=== PATIENT | male | born 1955 | race Caucasian/White ===

== ENCOUNTER 2021-03-07 16:14 | Inpatient (IN) | payer MEDICAID ==
[~2021-03-07] VITALS: Ht 172.7 cm; Wt 79.8 kg
[2021-03-07 17:45] LABS: BASOPHILS % 1.3 % (0.0-2.0); EOSINOPHILS % 1.3 % (0.0-5.0); HEMOGLOBIN. 12.7 g/dL (14.0-18.0); LYMPHOCYTES % 15.7 % (20.0-50.0); MEAN CORPUSCULAR HEMOGLOBIN 25.9 pg (28.0-32.0); MEAN CORPUSCULAR VOLUME 79.7 fL (80.0-94.0); MEAN PLATELET VOLUME 8.1 fl (7.4-10.4); MONOCYTES % 12.1 % (2.0-8.0); NEUTROPHILS % 69.6 % (40.0-76.0); PLATELET 215 x1000/uL (130-400); RED CELL DISTRIBUTION WIDTH 18.6 % (11.6-14.6)
[2021-03-07 17:54] LABS: CHLORIDE 102 mEq/L (98-107)
[2021-03-07 17:58] LABS: ETHANOL BLOOD 181 mg/dL
[2021-03-07 18:06] LABS: CLARITY URINE CLEAR (CLEAR); COLOR URINE YELLOW (YELLOW); KETONES URINE NEGATIVE (NEGATIVE); LEUKOCYTE ESTERASE URINE NEGATIVE (NEGATIVE); NITRITE URINE NEGATIVE (NEGATIVE); OCCULT BLOOD URINE NEGATIVE (NEGATIVE); PROTEIN URINE NEGATIVE (NEGATIVE); SPECIFIC GRAVITY URINE 1.004 (1.005-1.030); UROBILINOGEN URINE 0.2 E.U./dL (0.2-1.0)
[2021-03-07 18:28] LABS: *AMPHETAMINES SCREEN URINE NEGATIVE (NEGATIVE); *BENZODIAZEPINES SCREEN URINE NEGATIVE (NEGATIVE); CANNABINOID URINE SCREEN PRESUMTIVE POSITIVE (NEGATIVE); METHADONE URINE SCREEN NEGATIVE (NEGATIVE)
[2021-03-07 18:29] LABS: *BARBITURATES SCREEN URINE NEGATIVE (NEGATIVE); *COCAINE SCREEN URINE NEGATIVE (NEGATIVE); OPIATES URINE SCREEN NEGATIVE (NEGATIVE); PHENCYCLIDINE URINE SCREEN NEGATIVE (NEGATIVE)
[2021-03-07 19:06] LABS: PROTHROMBIN TIME 10.9 sec (9.6-11.0)
[2021-03-07] MEDS ORDERED: MORPHINE SULFATE 4 MG/ML CPJ (NOT FOR IM USE) IV STA (19:06)
[2021-03-07] MEDS ORDERED: ONDANSETRON HCL 4MG/2ML INJ IV STA (19:06)
[2021-03-07] MEDS ORDERED: NICARDIPINE 100 MG in SODIUM CHLORIDE 0.9% 60 ML IV PRN (19:30)
[2021-03-07] MEDS ORDERED: MORPHINE SULFATE 2 MG/ML CPJ (NOT FOR IM USE) IV PRN (19:30)
[2021-03-07] MEDS ORDERED: NALOXONE HCL 0.4MG/ML VIAL IV PRN (19:30)
[2021-03-07] MEDS: DEXT 5%/LACTATED RINGERS 1,000 ML IV SCH (20:08)
[2021-03-07] MEDS ORDERED: LEVETIRACETAM 500MG PREMIX 100 ML IV SCH (21:00)
[2021-03-07 23:09] VITALS: BP 132/77
[2021-03-07 23:10] VITALS: BP 125/74
[2021-03-07 23:15] VITALS: BP 116/73
[2021-03-07 23:30] VITALS: BP 125/74
[2021-03-07 23:45] VITALS: BP 116/71
[2021-03-08] VITALS (96 sets, daily range): BP systolic 86–167; BP diastolic 28–146
[2021-03-08] MEDS: NICARDIPINE 100 MG in SODIUM CHLORIDE 0.9% 60 ML IV PRN ×2 (00:37→08:00)
[2021-03-08] MEDS ORDERED: MANNITOL 20% (20GM/100ML) BAG 500ML PREMIX IV ONE (06:30)
[2021-03-08] MEDS ORDERED: MANNITOL 20% 125 ML IV SCH (06:45)
[2021-03-08] MEDS ORDERED: LIDOCAINE HCL/EPINEPHRINE 1%-EPI 1:100,000 20 ML VIAL ONE (07:10)
[2021-03-08] MEDS ORDERED: THROMBIN (BOVINE) 5000 UNITS/VIAL TOP ONE (07:11)
[2021-03-08] MEDS ORDERED: BACITRACIN 15GM TUBE TOP ONE (07:11)
[2021-03-08] MEDS ORDERED: GENTAMICIN SULF 40MG/ML 2ML VIAL ONE (07:11)
[2021-03-08] MEDS: LEVETIRACETAM 500MG PREMIX 100 ML IV SCH ×2 (08:12→21:09)
[2021-03-08] MEDS: PANTOPRAZOLE SODIUM 40 MG/VIAL IV SCH (09:36)
[2021-03-08] MEDS ORDERED: FENTANYL CITRATE/PF 50MCG/ML 2ML VIAL ONE (10:10)
[2021-03-08] MEDS ORDERED: MIDAZOLAM HCL 2 MG/2 ML VIAL ONE (10:10)
[2021-03-08] MEDS ORDERED: PROPOFOL 200MG/20ML VIAL IV ONE (10:10)
[2021-03-08] MEDS ORDERED: NEOSTIGMINE METHYLSULFATE 1MG/ML 10 ML VIAL ONE (10:10)
[2021-03-08] MEDS ORDERED: ROCURONIUM BROMIDE 10MG/ML VIAL 5ML IV ONE (10:10)
[2021-03-08] MEDS ORDERED: GLYCOPYRROLATE 0.2 MG/ML 2ML VIAL ONE (10:10)
[2021-03-08] MEDS ORDERED: ONDANSETRON HCL 4MG/2ML INJ ONE (10:43)
[2021-03-08] MEDS ORDERED: DEXAMETHASONE 4MG/ML 1ML VIAL ONE (10:43)
[2021-03-08] MEDS: MORPHINE SULFATE 2 MG/ML CPJ (NOT FOR IM USE) IV PRN ×4 (11:46→21:41)
[2021-03-08] MEDS: DEXT 5%/LACTATED RINGERS 1,000 ML IV SCH (12:10)
[2021-03-08] MEDS: ONDANSETRON HCL 4MG/2ML INJ IV PRN (13:47)
[2021-03-08] MEDS ORDERED: CEFAZOLIN SODIUM 1000MG/VIAL IV SCH (14:00)
[2021-03-08] MEDS: CEFAZOLIN 1000MG PREMIX 50 ML IV SCH ×2 (15:04→21:55)
[2021-03-08] MEDS: NICOTINE 14MG PATCH TD SCH (15:05)
[2021-03-08] MEDS ORDERED: MORPHINE SULFATE 2 MG/ML CPJ (NOT FOR IM USE) IV NR (17:30)
[2021-03-08] MEDS ORDERED: FOLIC ACID 1 MG, THIAMINE HCL 100 MG, MVI, ADULT NO.1 10 ML in DEXTROSE 5% WATER 1,000 ML IV SCH ×2 (20:00)
[2021-03-08] MEDS: [UNRECOGNIZED DRUG - REMARK] IV SCH (21:29)
[2021-03-08] MEDS ORDERED: IPRATROPIUM/ALBUTEROL 0.5-3(2.5)MG/3ML NEB HHN PRN (23:45)
[2021-03-09] VITALS (92 sets, daily range): BP systolic 94–164; BP diastolic 43–120
[2021-03-09] MEDS: ONDANSETRON HCL 4MG/2ML INJ IV PRN ×2 (00:36→09:28)
[2021-03-09] MEDS: MORPHINE SULFATE 2 MG/ML CPJ (NOT FOR IM USE) IV PRN ×6 (02:36→23:04)
[2021-03-09] MEDS: CEFAZOLIN 1000MG PREMIX 50 ML IV SCH ×2 (05:38→15:15)
[2021-03-09 05:41] LABS: HEMATOCRIT. 32.1 % (42.0-52.0); HEMOGLOBIN. 10.4 g/dL (14.0-18.0); MEAN CORPUSCULAR HEMOGLOBIN 25.9 pg (28.0-32.0); MEAN CORPUSCULAR VOLUME 79.8 fL (80.0-94.0); MEAN PLATELET VOLUME 8.5 fl (7.4-10.4); PLATELET 181 x1000/uL (130-400); RED BLOOD CELL COUNT 4.03 mill/uL (4.7-6.1); RED CELL DISTRIBUTION WIDTH 18.6 % (11.6-14.6)
[2021-03-09 05:48] LABS: CHLORIDE 101 mEq/L (98-107)
[2021-03-09] MEDS: PANTOPRAZOLE SODIUM 40 MG/VIAL IV SCH (08:37)
[2021-03-09] MEDS: LEVETIRACETAM 500MG PREMIX 100 ML IV SCH ×2 (08:38→20:05)
[2021-03-09] MEDS: DEXT 5%/LACTATED RINGERS 1,000 ML IV SCH ×2 (08:38→21:30)
[2021-03-09] MEDS: NICOTINE 14MG PATCH TD SCH (08:38)
[2021-03-09] MEDS ORDERED: POTASSIUM CHLORIDE INJ 40 MEQ in DEXT 5% WATER 250 ML IV SCH (10:00)
[2021-03-09 10:49] LABS: PLATELET ESTIMATE NORMAL
[2021-03-09] MEDS: [UNRECOGNIZED DRUG - REMARK] IV SCH (20:48)
[2021-03-09] MEDS: NICARDIPINE 100 MG in SODIUM CHLORIDE 0.9% 60 ML IV PRN (23:03)
[2021-03-10] VITALS (88 sets, daily range): BP systolic 67–185; BP diastolic 31–110
[2021-03-10] MEDS: MORPHINE SULFATE 2 MG/ML CPJ (NOT FOR IM USE) IV PRN ×7 (01:54→20:42)
[2021-03-10 05:29] LABS: CHLORIDE 97 mEq/L (98-107); HEMATOCRIT. 34.1 % (42.0-52.0); HEMOGLOBIN. 10.8 g/dL (14.0-18.0); MEAN CORPUSCULAR VOLUME 81.7 fL (80.0-94.0); MEAN PLATELET VOLUME 8.4 fl (7.4-10.4); PLATELET 152 x1000/uL (130-400); RED BLOOD CELL COUNT 4.17 mill/uL (4.7-6.1); RED CELL DISTRIBUTION WIDTH 18.4 % (11.6-14.6)
[2021-03-10] MEDS: PANTOPRAZOLE SODIUM 40 MG/VIAL IV SCH (08:57)
[2021-03-10] MEDS: NICOTINE 14MG PATCH TD SCH (08:58)
[2021-03-10] MEDS: LEVETIRACETAM 500MG PREMIX 100 ML IV SCH ×2 (08:58→21:44)
[2021-03-10 09:22] LABS: NUCLEATED RED BLOOD CELLS 1 /100 WBC
[2021-03-10 09:23] LABS: PLATELET ESTIMATE NORMAL
[2021-03-10] MEDS ORDERED: KCL 20MEQ/100ML PREMIX 100 ML IV SCH (12:00)
[2021-03-10] MEDS: DEXT 5%/LACTATED RINGERS 1,000 ML IV SCH (14:21)
[2021-03-10] MEDS: [UNRECOGNIZED DRUG - REMARK] IV SCH (21:44)
[2021-03-11] VITALS (90 sets, daily range): BP systolic 97–191; BP diastolic 48–117
[2021-03-11 05:32] LABS: HEMATOCRIT. 32.2 % (42.0-52.0); HEMOGLOBIN. 10.4 g/dL (14.0-18.0); MEAN CORPUSCULAR HEMOGLOBIN 26.1 pg (28.0-32.0); MEAN CORPUSCULAR VOLUME 80.7 fL (80.0-94.0); MEAN PLATELET VOLUME 8.7 fl (7.4-10.4); PLATELET 154 x1000/uL (130-400); RED BLOOD CELL COUNT 3.98 mill/uL (4.7-6.1); RED CELL DISTRIBUTION WIDTH 18.4 % (11.6-14.6)
[2021-03-11 05:50] LABS: CHLORIDE 99 mEq/L (98-107)
[2021-03-11] MEDS ORDERED: KCL 20MEQ/100ML PREMIX 100 ML IV SCH (06:30)
[2021-03-11] MEDS: DEXT 5%/LACTATED RINGERS 1,000 ML IV SCH (07:03)
[2021-03-11] MEDS: PANTOPRAZOLE SODIUM 40 MG/VIAL IV SCH (08:11)
[2021-03-11] MEDS: NICOTINE 14MG PATCH TD SCH (08:11)
[2021-03-11] MEDS: LEVETIRACETAM 500MG PREMIX 100 ML IV SCH ×2 (09:41→21:52)
[2021-03-11] MEDS: KCL 20MEQ/100ML PREMIX 100 ML IV SCH ×2 (10:48→13:12)
[2021-03-11] MEDS: MORPHINE SULFATE 2 MG/ML CPJ (NOT FOR IM USE) IV PRN ×2 (11:24→17:45)
[2021-03-11] MEDS: NICARDIPINE 100 MG in SODIUM CHLORIDE 0.9% 60 ML IV PRN (14:02)
[2021-03-11 14:43] LABS: PLATELET ESTIMATE NORMAL
[2021-03-11] MEDS: [UNRECOGNIZED DRUG - REMARK] IV SCH (21:52)
[2021-03-12] VITALS (27 sets, daily range): BP systolic 113–175; BP diastolic 53–87
[2021-03-12] MEDS: DEXT 5%/LACTATED RINGERS 1,000 ML IV SCH ×2 (06:03→16:21)
[2021-03-12] MEDS: POTASSIUM CHLORIDE 20MEQ/PACKET PO SCH (08:42)
[2021-03-12] MEDS: PANTOPRAZOLE SODIUM 40 MG/VIAL IV SCH (08:42)
[2021-03-12] MEDS: NICOTINE 14MG PATCH TD SCH (08:42)
[2021-03-12] MEDS: LEVETIRACETAM 500MG PREMIX 100 ML IV SCH ×2 (08:42→20:20)
[2021-03-12] MEDS ORDERED: CLONIDINE 0.1MG TABLET PO PRN (11:45)
[2021-03-12] MEDS: MORPHINE SULFATE 2 MG/ML CPJ (NOT FOR IM USE) IV PRN (12:54)
[2021-03-12 13:34] LABS: HEMATOCRIT. 35.6 % (42.0-52.0); HEMOGLOBIN. 11.4 g/dL (14.0-18.0); MEAN PLATELET VOLUME 8.6 fl (7.4-10.4); PLATELET 167 x1000/uL (130-400); RED BLOOD CELL COUNT 4.39 mill/uL (4.7-6.1); RED CELL DISTRIBUTION WIDTH 18.5 % (11.6-14.6)
[2021-03-12 13:45] LABS: CHLORIDE 103 mEq/L (98-107)
[2021-03-12] MEDS ORDERED: AMLODIPINE 5MG TABLET PO NR (17:15)
[2021-03-12 18:38] LABS: PLATELET ESTIMATE NORMAL
[2021-03-12] MEDS: LORAZEPAM 2MG/ML CPJ IV PRN (18:47)
[2021-03-12] MEDS: ONDANSETRON HCL 4MG/2ML INJ IV PRN (23:01)
[2021-03-13] VITALS (12 sets, daily range): BP systolic 120–149; BP diastolic 74–101
[2021-03-13] MEDS: LORAZEPAM 2MG/ML CPJ IV PRN (04:25)
[2021-03-13 06:17] LABS: HEMATOCRIT. 34.7 % (42.0-52.0); HEMOGLOBIN. 11.5 g/dL (14.0-18.0); MEAN CORPUSCULAR HEMOGLOBIN 26.6 pg (28.0-32.0); MEAN CORPUSCULAR VOLUME 80.1 fL (80.0-94.0); MEAN PLATELET VOLUME 8.8 fl (7.4-10.4); PLATELET 182 x1000/uL (130-400); RED BLOOD CELL COUNT 4.34 mill/uL (4.7-6.1); RED CELL DISTRIBUTION WIDTH 18.4 % (11.6-14.6)
[2021-03-13 06:26] LABS: CHLORIDE 101 mEq/L (98-107)
[2021-03-13] MEDS: DEXT 5%/LACTATED RINGERS 1,000 ML IV SCH (08:50)
[2021-03-13] MEDS: PANTOPRAZOLE SODIUM 40 MG/VIAL IV SCH ×2 (09:00→09:20)
[2021-03-13] MEDS: POTASSIUM CHLORIDE 20MEQ/PACKET PO SCH (09:20)
[2021-03-13] MEDS: AMLODIPINE 5MG TABLET PO SCH (09:20)
[2021-03-13] MEDS: NICOTINE 14MG PATCH TD SCH (09:21)
[2021-03-13] MEDS: LEVETIRACETAM 500MG PREMIX 100 ML IV SCH ×2 (09:21→21:04)
[2021-03-13] MEDS ORDERED: LORAZEPAM 1MG TABLET PO PRN (12:15)
[2021-03-13] MEDS ORDERED: NALOXONE HCL 0.4MG/ML VIAL IV PRN (12:30)
[2021-03-13] MEDS: HYDROCODONE/ACETAMINOPHEN 5/325MG TABLET PO PRN ×2 (12:39→21:31)
[2021-03-13 17:06] LABS: PLATELET ESTIMATE NORMAL
[2021-03-13] MEDS ORDERED: POTASSIUM CHLORIDE INJ 40 MEQ in DEXT 5% WATER 250 ML IV NR (20:30)
[2021-03-14] VITALS (12 sets, daily range): BP systolic 117–147; BP diastolic 66–96
[2021-03-14] MEDS: DEXT 5%/LACTATED RINGERS 1,000 ML IV SCH ×2 (00:57→18:02)
[2021-03-14 06:14] LABS: HEMATOCRIT. 34.6 % (42.0-52.0); HEMOGLOBIN. 11.3 g/dL (14.0-18.0); MEAN CORPUSCULAR HEMOGLOBIN 26.1 pg (28.0-32.0); MEAN CORPUSCULAR VOLUME 79.7 fL (80.0-94.0); MEAN PLATELET VOLUME 8.2 fl (7.4-10.4); PLATELET 182 x1000/uL (130-400); RED BLOOD CELL COUNT 4.34 mill/uL (4.7-6.1); RED CELL DISTRIBUTION WIDTH 18.1 % (11.6-14.6)
[2021-03-14 06:22] LABS: CHLORIDE 102 mEq/L (98-107)
[2021-03-14] MEDS: NICOTINE 14MG PATCH TD SCH (08:00)
[2021-03-14] MEDS: AMLODIPINE 5MG TABLET PO SCH (08:00)
[2021-03-14] MEDS: PANTOPRAZOLE SODIUM 40 MG/VIAL IV SCH (08:00)
[2021-03-14] MEDS: POTASSIUM CHLORIDE 20MEQ/PACKET PO SCH (08:00)
[2021-03-14] MEDS: LEVETIRACETAM 500MG PREMIX 100 ML IV SCH ×2 (08:02→20:00)
[2021-03-14] MEDS: HYDROCODONE/ACETAMINOPHEN 5/325MG TABLET PO PRN (09:34)
[2021-03-14] MEDS: LORAZEPAM 2MG/ML CPJ IV PRN (15:17)
[2021-03-14 17:08] LABS: PLATELET ESTIMATE NORMAL
[2021-03-14] MEDS: KCL 20MEQ/100ML PREMIX 100 ML IV SCH (22:10)
[2021-03-15] VITALS (10 sets, daily range): BP systolic 114–142; BP diastolic 58–89
[2021-03-15] MEDS: KCL 20MEQ/100ML PREMIX 100 ML IV SCH (00:11)
[2021-03-15] MEDS: ONDANSETRON HCL 4MG/2ML INJ IV PRN (04:46)
[2021-03-15 06:44] LABS: HEMOGLOBIN. 11.7 g/dL (14.0-18.0); MEAN CORPUSCULAR VOLUME 80.2 fL (80.0-94.0); MEAN PLATELET VOLUME 8.3 fl (7.4-10.4); PLATELET 191 x1000/uL (130-400); RED BLOOD CELL COUNT 4.49 mill/uL (4.7-6.1)
[2021-03-15 06:46] LABS: CHLORIDE 104 mEq/L (98-107)
[2021-03-15] MEDS: AMLODIPINE 5MG TABLET PO SCH (08:26)
[2021-03-15] MEDS: PANTOPRAZOLE SODIUM 40 MG/VIAL IV SCH (08:26)
[2021-03-15] MEDS: NICOTINE 14MG PATCH TD SCH (08:26)
[2021-03-15] MEDS: POTASSIUM CHLORIDE 20MEQ/PACKET PO SCH (08:26)
[2021-03-15] MEDS: LEVETIRACETAM 500MG PREMIX 100 ML IV SCH ×2 (08:27→22:08)
[2021-03-15] MEDS: DEXT 5%/LACTATED RINGERS 1,000 ML IV SCH (17:53)
[2021-03-16] VITALS (13 sets, daily range): BP systolic 121–150; BP diastolic 60–96
[2021-03-16] MEDS: ONDANSETRON HCL 4MG/2ML INJ IV PRN ×2 (01:21→21:42)
[2021-03-16] MEDS: LORAZEPAM 2MG/ML CPJ IV PRN ×3 (02:13→22:01)
[2021-03-16 06:06] LABS: PLATELET ESTIMATE NORMAL
[2021-03-16 06:57] LABS: CHLORIDE 102 mEq/L (98-107)
[2021-03-16 07:02] LABS: HEMATOCRIT. 34.1 % (42.0-52.0); MEAN CORPUSCULAR HEMOGLOBIN 25.8 pg (28.0-32.0); MEAN CORPUSCULAR VOLUME 79.9 fL (80.0-94.0); MEAN PLATELET VOLUME 8.4 fl (7.4-10.4); PLATELET 208 x1000/uL (130-400); RED BLOOD CELL COUNT 4.27 mill/uL (4.7-6.1)
[2021-03-16] MEDS: PANTOPRAZOLE SODIUM 40 MG/VIAL IV SCH (09:16)
[2021-03-16] MEDS: NICOTINE 14MG PATCH TD SCH (09:16)
[2021-03-16] MEDS: POTASSIUM CHLORIDE 20MEQ/PACKET PO SCH (09:16)
[2021-03-16] MEDS: LEVETIRACETAM 500MG PREMIX 100 ML IV SCH ×2 (09:17→21:42)
[2021-03-16] MEDS: AMLODIPINE 5MG TABLET PO SCH (09:18)
[2021-03-16 11:04] LABS: PLATELET ESTIMATE NORMAL
[2021-03-16] MEDS: DEXT 5%/LACTATED RINGERS 1,000 ML IV SCH (12:00)
[2021-03-17] VITALS (11 sets, daily range): BP systolic 121–143; BP diastolic 69–84
[2021-03-17] MEDS: DEXT 5%/LACTATED RINGERS 1,000 ML IV SCH ×3 (06:13→22:47)
[2021-03-17] MEDS: PANTOPRAZOLE SODIUM 40 MG/VIAL IV SCH (09:19)
[2021-03-17] MEDS: AMLODIPINE 5MG TABLET PO SCH (09:19)
[2021-03-17] MEDS: NICOTINE 14MG PATCH TD SCH (09:19)
[2021-03-17] MEDS: POTASSIUM CHLORIDE 20MEQ/PACKET PO SCH (09:19)
[2021-03-17] MEDS: LEVETIRACETAM 500MG PREMIX 100 ML IV SCH ×2 (09:20→21:00)
[2021-03-17] MEDS: LORAZEPAM 2MG/ML CPJ IV PRN (20:32)
[2021-03-17] MEDS: ONDANSETRON HCL 4MG/2ML INJ IV PRN (20:32)
[2021-03-18] VITALS (12 sets, daily range): BP systolic 116–152; BP diastolic 59–95
[2021-03-18] MEDS: LORAZEPAM 2MG/ML CPJ IV PRN ×2 (04:57→20:20)
[2021-03-18] MEDS: HYDROCODONE/ACETAMINOPHEN 5/325MG TABLET PO PRN (04:58)
[2021-03-18] MEDS: LEVETIRACETAM 500MG PREMIX 100 ML IV SCH ×2 (09:02→20:19)
[2021-03-18] MEDS: PANTOPRAZOLE SODIUM 40 MG/VIAL IV SCH (09:02)
[2021-03-18] MEDS: NICOTINE 14MG PATCH TD SCH (09:03)
[2021-03-18] MEDS: POTASSIUM CHLORIDE 20MEQ/PACKET PO SCH (09:03)
[2021-03-18] MEDS: AMLODIPINE 5MG TABLET PO SCH (09:03)
[2021-03-18] MEDS: DEXT 5%/LACTATED RINGERS 1,000 ML IV SCH (20:19)
[2021-03-18] MEDS: ONDANSETRON HCL 4MG/2ML INJ IV PRN (20:20)
[2021-03-19] VITALS (12 sets, daily range): BP systolic 118–144; BP diastolic 62–101
[2021-03-19] MEDS: ONDANSETRON HCL 4MG/2ML INJ IV PRN ×3 (04:42→23:15)
[2021-03-19] MEDS: LORAZEPAM 2MG/ML CPJ IV PRN ×3 (04:42→23:15)
[2021-03-19 07:29] LABS: BASOPHILS % 1.3 % (0.0-2.0); HEMATOCRIT. 38.4 % (42.0-52.0); HEMOGLOBIN. 12.4 g/dL (14.0-18.0); LYMPHOCYTES % 11.3 % (20.0-50.0); MEAN CORPUSCULAR HEMOGLOBIN 26.3 pg (28.0-32.0); MEAN CORPUSCULAR VOLUME 81.8 fL (80.0-94.0); MEAN PLATELET VOLUME 8.6 fl (7.4-10.4); NEUTROPHILS % 72.4 % (40.0-76.0); PLATELET 248 x1000/uL (130-400); RED CELL DISTRIBUTION WIDTH 18.3 % (11.6-14.6)
[2021-03-19 08:02] LABS: CHLORIDE 101 mEq/L (98-107)
[2021-03-19] MEDS: AMLODIPINE 5MG TABLET PO SCH (09:00)
[2021-03-19] MEDS: LEVETIRACETAM 500MG PREMIX 100 ML IV SCH ×2 (10:05→22:05)
[2021-03-19] MEDS: NICOTINE 14MG PATCH TD SCH (10:05)
[2021-03-19] MEDS: PANTOPRAZOLE SODIUM 40 MG/VIAL IV SCH (10:05)
[2021-03-19] MEDS: POTASSIUM CHLORIDE 20MEQ/PACKET PO SCH (10:05)
[2021-03-19] MEDS: LACTULOSE 20G/30ML UDC PO SCH ×2 (14:40→22:04)
[2021-03-19] MEDS: DEXT 5%/LACTATED RINGERS 1,000 ML IV SCH (14:42)
[2021-03-20] VITALS (10 sets, daily range): BP systolic 113–146; BP diastolic 72–86
[2021-03-20] MEDS: LACTULOSE 20G/30ML UDC PO SCH ×3 (05:23→21:33)
[2021-03-20 06:20] LABS: BASOPHILS % 1.1 % (0.0-2.0); EOSINOPHILS % 1.8 % (0.0-5.0); HEMATOCRIT. 38.4 % (42.0-52.0); HEMOGLOBIN. 12.4 g/dL (14.0-18.0); LYMPHOCYTES % 13.2 % (20.0-50.0); MEAN CORPUSCULAR HEMOGLOBIN 26.3 pg (28.0-32.0); MEAN CORPUSCULAR VOLUME 81.6 fL (80.0-94.0); MEAN PLATELET VOLUME 8.4 fl (7.4-10.4); MONOCYTES % 14.5 % (2.0-8.0); NEUTROPHILS % 69.4 % (40.0-76.0); PLATELET 275 x1000/uL (130-400); RED BLOOD CELL COUNT 4.71 mill/uL (4.7-6.1); RED CELL DISTRIBUTION WIDTH 18.2 % (11.6-14.6)
[2021-03-20 06:27] LABS: CHLORIDE 103 mEq/L (98-107)
[2021-03-20 06:53] LABS: CLARITY URINE CLEAR (CLEAR); COLOR URINE YELLOW (YELLOW); KETONES URINE NEGATIVE (NEGATIVE); LEUKOCYTE ESTERASE URINE NEGATIVE (NEGATIVE); NITRITE URINE NEGATIVE (NEGATIVE); OCCULT BLOOD URINE NEGATIVE (NEGATIVE); PH URINE 7.5 (4.5-8.0); PROTEIN URINE NEGATIVE (NEGATIVE)
[2021-03-20] MEDS: LEVETIRACETAM 500MG PREMIX 100 ML IV SCH ×2 (10:31→21:34)
[2021-03-20] MEDS: PANTOPRAZOLE SODIUM 40 MG/VIAL IV SCH (10:32)
[2021-03-20] MEDS: NICOTINE 14MG PATCH TD SCH (10:34)
[2021-03-20] MEDS: AMLODIPINE 5MG TABLET PO SCH (10:37)
[2021-03-20] MEDS: DEXT 5%/LACTATED RINGERS 1,000 ML IV SCH (10:37)
[2021-03-20] MEDS: POTASSIUM CHLORIDE 20MEQ/PACKET PO SCH (10:38)
[2021-03-20] MEDS: LORAZEPAM 2MG/ML CPJ IV PRN (23:56)
[2021-03-21] VITALS (12 sets, daily range): BP systolic 97–135; BP diastolic 59–98
[2021-03-21] MEDS: DEXT 5%/LACTATED RINGERS 1,000 ML IV SCH (03:16)
[2021-03-21] MEDS: LACTULOSE 20G/30ML UDC PO SCH ×3 (04:30→21:33)
[2021-03-21] MEDS: LEVETIRACETAM 500MG PREMIX 100 ML IV SCH (08:36)
[2021-03-21] MEDS: POTASSIUM CHLORIDE 20MEQ/PACKET PO SCH (08:36)
[2021-03-21] MEDS: AMLODIPINE 5MG TABLET PO SCH (08:36)
[2021-03-21] MEDS: PANTOPRAZOLE SODIUM 40 MG/VIAL IV SCH (08:36)
[2021-03-21] MEDS: NICOTINE 14MG PATCH TD SCH (10:01)
[2021-03-21] MEDS: RISPERIDONE 0.5MG TABLET PO SCH (13:00)
[2021-03-21] MEDS ORDERED: LORAZEPAM 2MG/ML CPJ IM PRN (17:45)
[2021-03-21] MEDS: FAMOTIDINE 20MG TABLET PO SCH (20:27)
[2021-03-21] MEDS: ONDANSETRON HCL 4MG/2ML INJ IV PRN (20:28)
[2021-03-21] MEDS: LEVETIRACETAM 500MG TABLET PO SCH (20:28)
[2021-03-22] VITALS (11 sets, daily range): BP systolic 118–135; BP diastolic 79–87
[2021-03-22] MEDS: LORAZEPAM 2MG/ML CPJ IV PRN ×2 (00:30→21:39)
[2021-03-22] MEDS: LACTULOSE 20G/30ML UDC PO SCH ×3 (05:10→21:38)
[2021-03-22 06:52] LABS: BASOPHILS % 1.1 % (0.0-2.0); EOSINOPHILS % 0.5 % (0.0-5.0); HEMATOCRIT. 37.8 % (42.0-52.0); HEMOGLOBIN. 12.1 g/dL (14.0-18.0); LYMPHOCYTES % 7.6 % (20.0-50.0); MONOCYTES % 11.8 % (2.0-8.0); PLATELET 357 x1000/uL (130-400); RED BLOOD CELL COUNT 4.66 mill/uL (4.7-6.1); RED CELL DISTRIBUTION WIDTH 18.3 % (11.6-14.6)
[2021-03-22] MEDS: RISPERIDONE 0.5MG TABLET PO SCH (08:17)
[2021-03-22] MEDS: AMLODIPINE 5MG TABLET PO SCH (08:18)
[2021-03-22] MEDS: POTASSIUM CHLORIDE 20MEQ/PACKET PO SCH (08:18)
[2021-03-22] MEDS: NICOTINE 14MG PATCH TD SCH (08:18)
[2021-03-22 09:15] LABS: CHLORIDE 103 mEq/L (98-107)
[2021-03-22] MEDS: LEVETIRACETAM 500MG TABLET PO SCH ×2 (09:47→21:38)
[2021-03-22] MEDS ORDERED: ACETAMINOPHEN 325MG TABLET PO PRN (11:30)
[2021-03-22 15:50] LABS: CLARITY URINE CLEAR (CLEAR); COLOR URINE DARK YELLOW (YELLOW); KETONES URINE TRACE (NEGATIVE); LEUKOCYTE ESTERASE URINE TRACE (NEGATIVE); NITRITE URINE NEGATIVE (NEGATIVE); OCCULT BLOOD URINE NEGATIVE (NEGATIVE); PH URINE 6.5 (4.5-8.0); PROTEIN URINE NEGATIVE (NEGATIVE); SPECIFIC GRAVITY URINE 1.023 (1.005-1.030)
[2021-03-22] MEDS: CEFEPIME 2,000 MG in DEXT 5% WATER 100 ML IV SCH (17:57)
[2021-03-22] MEDS: FAMOTIDINE 20MG TABLET PO SCH (21:38)
[2021-03-22] MEDS: ONDANSETRON HCL 4MG/2ML INJ IV PRN (21:39)
[2021-03-23] VITALS (7 sets, daily range): BP systolic 124–143; BP diastolic 55–101
[2021-03-23] MEDS: CEFEPIME 2,000 MG in DEXT 5% WATER 100 ML IV SCH ×3 (01:38→17:29)
[2021-03-23] MEDS: LACTULOSE 20G/30ML UDC PO SCH ×3 (06:18→21:52)
[2021-03-23 08:46] LABS: BASOPHILS % 0.8 % (0.0-2.0); EOSINOPHILS % 0.6 % (0.0-5.0); HEMATOCRIT. 38.3 % (42.0-52.0); HEMOGLOBIN. 12.4 g/dL (14.0-18.0); LYMPHOCYTES % 7.7 % (20.0-50.0); MEAN CORPUSCULAR HEMOGLOBIN 26.1 pg (28.0-32.0); MEAN PLATELET VOLUME 8.5 fl (7.4-10.4); MONOCYTES % 11.2 % (2.0-8.0); NEUTROPHILS % 79.7 % (40.0-76.0); PLATELET 356 x1000/uL (130-400); RED BLOOD CELL COUNT 4.73 mill/uL (4.7-6.1)
[2021-03-23 09:00] LABS: CHLORIDE 102 mEq/L (98-107)
[2021-03-23] MEDS: LEVETIRACETAM 500MG TABLET PO SCH ×2 (09:11→21:52)
[2021-03-23] MEDS: POTASSIUM CHLORIDE 20MEQ/PACKET PO SCH (09:11)
[2021-03-23] MEDS: AMLODIPINE 5MG TABLET PO SCH (09:11)
[2021-03-23] MEDS: RISPERIDONE 0.5MG TABLET PO SCH (09:12)
[2021-03-23] MEDS: NICOTINE 14MG PATCH TD SCH (09:12)
[2021-03-23] MEDS: FAMOTIDINE 20MG TABLET PO SCH (21:52)
[2021-03-24] VITALS: BP 131/81
[2021-03-24] MEDS: CEFEPIME 2,000 MG in DEXT 5% WATER 100 ML IV SCH ×3 (01:03→17:25)
[2021-03-24] MEDS: LORAZEPAM 2MG/ML CPJ IV PRN ×2 (01:25→20:52)
[2021-03-24 04:00] VITALS: BP 135/88
[2021-03-24] MEDS: LACTULOSE 20G/30ML UDC PO SCH ×4 (06:02→22:00)
[2021-03-24 08:00] VITALS: BP_SYST 154; BP_DIAS 4; BP_DIAS 64
[2021-03-24] MEDS: NICOTINE 14MG PATCH TD SCH (09:10)
[2021-03-24] MEDS: AMLODIPINE 5MG TABLET PO SCH (09:11)
[2021-03-24] MEDS: POTASSIUM CHLORIDE 20MEQ/PACKET PO SCH (09:11)
[2021-03-24] MEDS: LEVETIRACETAM 500MG TABLET PO SCH ×2 (09:12→20:52)
[2021-03-24] MEDS: RISPERIDONE 0.5MG TABLET PO SCH (09:12)
[2021-03-24 12:00] VITALS: BP 118/83
[2021-03-24 16:00] VITALS: BP 123/79
[2021-03-24] MEDS: RISPERIDONE 1MG TABLET PO SCH (17:25)
[2021-03-24 20:00] VITALS: BP 129/82
[2021-03-24] MEDS: FAMOTIDINE 20MG TABLET PO SCH (20:52)
[2021-03-25] VITALS: BP 119/72
[2021-03-25] MEDS: CEFEPIME 2,000 MG in DEXT 5% WATER 100 ML IV SCH ×2 (01:47→09:19)
[2021-03-25] MEDS: ONDANSETRON HCL 4MG/2ML INJ IV PRN (03:57)
[2021-03-25 04:00] VITALS: BP 136/79
[2021-03-25] MEDS: LACTULOSE 20G/30ML UDC PO SCH ×2 (05:03→13:27)
[2021-03-25 08:00] VITALS: BP 131/92
[2021-03-25] MEDS: NICOTINE 14MG PATCH TD SCH (09:19)
[2021-03-25] MEDS: AMLODIPINE 5MG TABLET PO SCH (09:19)
[2021-03-25] MEDS: POTASSIUM CHLORIDE 20MEQ/PACKET PO SCH (09:19)
[2021-03-25] MEDS: LEVETIRACETAM 500MG TABLET PO SCH (09:19)
[2021-03-25] MEDS: RISPERIDONE 1MG TABLET PO SCH (09:20)
[2021-03-25 09:25] LABS: BASOPHILS % 0.7 % (0.0-2.0); HEMATOCRIT. 39.4 % (42.0-52.0); HEMOGLOBIN. 12.5 g/dL (14.0-18.0); LYMPHOCYTES % 9.2 % (20.0-50.0); MEAN CORPUSCULAR HEMOGLOBIN 25.7 pg (28.0-32.0); MEAN CORPUSCULAR VOLUME 81.1 fL (80.0-94.0); MEAN PLATELET VOLUME 8.1 fl (7.4-10.4); MONOCYTES % 10.8 % (2.0-8.0); NEUTROPHILS % 77.3 % (40.0-76.0); PLATELET 425 x1000/uL (130-400); RED BLOOD CELL COUNT 4.86 mill/uL (4.7-6.1)
[2021-03-25 09:41] LABS: CHLORIDE 105 mEq/L (98-107)
[2021-03-25 11:49] VITALS: BP 127/75
[2021-03-25 14:54] VITALS: BP 119/89
== END 2021-03-25 16:50 | disposition home or self-care (01) | DRG 20 ==
LOC: ER 16:14 → EDBEDREQTM 19:59 → EDBEDREQ 19:59 → ENRESERV 22:21 → MICUNO 22:50 → 5EST 03-12 11:27
PROVIDERS: ADMIT Internal Medicine; ATTEND Internal Medicine
PROC: 00C40ZZ Extirpation of Matter from Intracranial Subdural Space, Open Approach (ICD-10-PCS; principal; 2021-03-08)
PROC: 0NQ00ZZ Repair Skull, Open Approach (ICD-10-PCS; 2021-03-08)
PROC: 4A103BD Monitoring of Intracranial Pressure, Percutaneous Approach (ICD-10-PCS; 2021-03-08)
PROC: 00H632Z Insertion of Monitoring Device into Cerebral Ventricle, Percutaneous Approach (ICD-10-PCS; 2021-03-08)
PROC: 30233N1 Transfusion of Nonautologous Red Blood Cells into Peripheral Vein, Percutaneous Approach (ICD-10-PCS; 2021-03-08)
DX: S06.5X9A Traumatic subdural hemorrhage with loss of consciousness of unspecified duration, initial encounter (principal); A41.9 Sepsis, unspecified organism; G93.40 Encephalopathy, unspecified; E44.1 Mild protein-calorie malnutrition; F12.90 Cannabis use, unspecified, uncomplicated; Y90.6 Blood alcohol level of 120-199 mg/100 ml; I10 Essential (primary) hypertension; I25.10 Atherosclerotic heart disease of native coronary artery without angina pectoris; E87.6 Hypokalemia; F10.129 Alcohol abuse with intoxication, unspecified; W18.39XA Other fall on same level, initial encounter; Z20.822 Contact with and (suspected) exposure to COVID-19; D64.9 Anemia, unspecified; F17.210 Nicotine dependence, cigarettes, uncomplicated; Z71.41 Alcohol abuse counseling and surveillance of alcoholic; Z68.26 Body mass index [BMI] 26.0-26.9, adult; Y93.89 Activity, other specified; Y92.89 Other specified places as the place of occurrence of the external cause; Y99.8 Other external cause status
CPT/HCPCS: 36415; 71045; 74176; 80048; 80053; 80305; 80320; 81003; 82140; 82962; 83735; 84132; 84145; 85025; 86850; 86900; 86927; 87426; 88304; 92610; 93005; 97116; 97162; 97166; 97530; 99285; C1713; C1893; C9113; J0690; J0692; J1100; J1580; J1953; J2060; J2250; J2270; J2405; J2704; J2710; J3010; J3411; J3480; J3490; J7040; J7042; J7050; J7060; J7070; P9017; A4315; G0480